=== PATIENT | female | born 1970 | race American Indian/Alaskan Native ===

== ENCOUNTER 2017-07-26 08:24 | Emergency (ER) | payer MEDICAID ==
[2017-07-26 09:03] VITALS: BP 122/88
--- NOTE | 2017-07-26 10:07 | EDM.PDOC ---
ED HPI GENERAL MEDICAL PROBLEM - General Chief Complaint: Neck Problem Stated Complaint: NECK PAIN,RIGHT FOOT PAIN Time Seen by Provider: 07/26/17 09:30 Source of Information: Reports: Patient History Limitations: Reports: No Limitations - History of Present Illness INITIAL COMMENTS - FREE TEXT/NARRATIVE: 46-year-old female who recently moved to the area is in with several complaints. She hurt her neck several days ago, a nonspecific injury where she felt a pop in the back of her neck. She's not been getting intermittent dizziness, she also has pain on the bottom of her right foot. She takes Neurontin for chronic pain but it's not helping. She wants something stronger for pain. She is allergic to Toradol and ibuprofen and wants to make sure we add naproxen to her list as well. She is diabetic so does not want to take prednisone. She has no fever or chills, denies shortness of breath. Onset: Unknown/Unsure Location: Reports: Neck, Lower Extremity, Right Severity: Mild Associated Symptoms: Reports: No Other Symptoms - Related Data Allergies Allergy/AdvReac Type Severity Reaction Status Date / Time ibuprofen Allergy Hives Verified 07/26/17 09:12 ketorolac tromethamine Allergy Hives Verified 07/26/17 09:12 [From Toradol] naproxen Allergy Hives Verified 07/26/17 09:12 Home Meds: Home Meds Gabapentin [Neurontin] 600 mg PO BID 11/13/13 [History] glipiZIDE [Glucotrol] 5 mg PO DAILY 11/02/15 [History] Gabapentin [Neurontin] 600 mg PO TID #90 tab 11/04/15 [Rx] Hydrocodone/Acetaminophen [Hydrocodon-Acetaminophen 5-325] 1 each PO Q4H PRN # 20 tablet 11/04/15 [Rx] Insulin Detemir [Levemir] 30 unit SUBCUT BEDTIME #2 pen 11/04/15 [Rx] buPROPion [Wellbutrin] 100 mg PO BID #60 tab 11/04/15 [Rx] Insulin Aspart [NovoLOG] 15 unit SUBCUT QIDACANDBED 07/26/17 [History] Insulin Glarg,Human.Rec.Analog [Lantus Solostar] 35 units SQ DAILY 07/26/17 [ History] Past Medical History Cardiovascular History: Reports: Arrhythmia Respiratory History: Reports: Asthma Gastrointestinal History: Reports: GERD Genitourinary History: Reports: Other (See Below) Other Genitourinary History: frequent urination [employer] History: Reports: , Other (See Below) Other OB/BYN History: 2 miscariages Musculoskeletal History: Reports: Other (See Below) Other Musculoskeletal History: neuropathy Psychiatric History: Reports: Depression, Emotional Problems Endocrine/Metabolic History: Reports: Diabetes, Type I - Infectious Disease History Infectious Disease History: Reports: Chicken Pox - Past Surgical History Female Surgical History: Reports: Tubal Ligation Social & Family History - Family History Cardiac: Reports: Heart Failure, [place] Neurological: Reports: CVA Endocrine/Metabolic: Reports: Diabetes, type II - Tobacco Use Smoking Status *Q: Current Every Day Smoker Years of Tobacco use: 33 Packs/Tins Daily: 0.5 Second Hand Smoke Exposure: Yes - Caffeine Use Caffeine Use: Reports: Coffee, Soda - Recreational Drug Use Recreational Drug Use: No ED ROS GENERAL - Review of Systems Review Of Systems: See Below (Dr. johnson in [place].) Constitutional: Reports: No Symptoms HEENT: Reports: No Symptoms Respiratory: Denies: Shortness of Breath Cardiovascular: Denies: Chest Pain GI/Abdominal: Denies: Abdominal Pain Musculoskeletal: Reports: Neck Pain, Foot Pain Skin: Reports: No Symptoms Neurological: Reports: Dizziness. Denies: Headache ED EXAM, GENERAL - Physical Exam Exam: See Below Exam Limited By: No Limitations General Appearance: Alert, No Apparent Distress Head: Atraumatic Neck: Other (Patient is moving her neck freely, but reacts with tenderness to palpation over the cervical body C5-C7. Even light palpation causes her to wince with pain. There is no bruising or swelling.) Respiratory/Chest: No Respiratory Distress Extremities: Other (Right foot was examined, she does have tenderness to the lateral aspect of the heel, especially on the sole of the foot. This correlates with a plantar fascia type pain. There is no erythema or swelling. No edema.) Course - Vital Signs Last Recorded V/S: Last Vital Signs Temp 96.1 F 07/26/17 09:02 Pulse 99 07/26/17 09:02 Resp 14 07/26/17 09:02 BP 122/88 07/26/17 09:02 Pulse Ox 95 07/26/17 09:02 - Re-Assessments/Exams Free Text/Narrative Re-Assessment/Exam: 07/26/17 10:08 Patient claims that her reaction to Toradol is nausea and vomiting, I told her this would be a very good medicine for her and offered her an injection with observation to make sure she didn't have a reaction but she refuses. I then offered her prednisone for just 2-3 days for the inflammation and a podiatry consultation but she wanted something for pain. When I told her that she can continue with Tylenol, ice to the sore areas and increase activity she became angry and left without signing discharge instructions. She was observed walking out of the emergency room with no limp. Departure - Departure Time of Disposition: 10:20 Disposition: Home, Self-Care 01 Condition: Good Clinical Impression: Neck pain, Foot pain, right - Discharge Information Referrals: PCP,None [Primary Care Provider] - Forms: ED Department Discharge Care Plan Goals: Patient was encouraged to increase activity as tolerated, use ice to sore areas and use Tylenol for pain and continue her Neurontin. When she did not get stronger pain medications however she left without official discharge instructions.
== END 2017-07-26 10:05 | disposition home or self-care (01) ==
LOC: JP.ED 08:24
DX: M54.2 Cervicalgia (principal); M79.671 Pain in right foot; J45.909 Unspecified asthma, uncomplicated; E10.9 Type 1 diabetes mellitus without complications; Z79.84 Long term (current) use of oral hypoglycemic drugs; Z79.4 Long term (current) use of insulin; Z79.899 Other long term (current) drug therapy; Z88.8 Allergy status to other drugs, medicaments and biological substances; Z88.6 Allergy status to analgesic agent
CPT/HCPCS: 99283